=== PATIENT | female | born 1955 | race Caucasian/White ===

== ENCOUNTER 2022-07-03 02:41 | Emergency (ER) | payer OTHER ==
[~2022-07-03] VITALS: Ht 165.1 cm; Wt 113.4 kg
[2022-07-03] MEDS ORDERED: MORPHINE SULFATE INJ 4 MG/ML DISP.SYRIN ONE (02:56)
[2022-07-03] MEDS ORDERED: IV NS 0.9% 1,000 ML BAG IV ONE (03:00)
[2022-07-03] MEDS ORDERED: MORPHINE SULFATE INJ 2 MG/ML DISP.SYRIN IV ONE (03:00)
--- NOTE | 2022-07-03 03:04 | NUR ---
MARIELENARA 841 FROM HOME FOR GAS PIAN AND CONSTIPATION FOR 2 DAYS. PT NOT ABLE TO USE RESTROOM C/O ABD PAIN. PT IS A/O X 4, RR EVEN AND UNLABORED NO SOB NOTED. VSS, NAD. PT IS AFEBRILE.
--- NOTE | 2022-07-03 03:10 | NUR ---
IV FRANCES G20 INSERTED ON RIGHT AC. BLOOD DRAWN AND SENT TO LAB
[2022-07-03 03:38] LABS: BASOPHILS # (AUTO) 0.1 K/uL (0.0-0.2); BASOPHILS % (AUTO) 0.5 % (0.0-2.0); EOSINOPHILS % (AUTO) 0.2 % (0.0-6.0); HEMATOCRIT 41 % (33-45); HEMOGLOBIN 13.2 g/dL (11.5-14.8); LYMPHOCYTES # (AUTO) 3.9 K/uL (0.8-4.8); LYMPHOCYTES % (AUTO) 24.6 % (20.0-44.0); MEAN CORPUSCULAR HGB CONC 32 g/dl (31.0-36.0); MEAN CORPUSCULAR VOLUME 92 fL (82-100); MONOCYTES # (AUTO) 1.2 K/uL (0.1-1.30); MONOCYTES % (AUTO) 7.8 % (2.0-12.0); NEUTROPHILS # (AUTO) 10.7 K/uL (1.8-8.9); NEUTROPHILS % (AUTO) 66.9 % (43.0-81.0); PLATELET COUNT (AUTO) 308 K/uL (150-450)
[2022-07-03 03:56] LABS: CALCIUM, SERUM 10.6 mg/dL (8.5-10.1); CREATININE 1.2 mg/dL (0.6-1.3); POTASSIUM 3.9 mmol/L (3.5-5.1)
[2022-07-03 04:02] LABS: ALBUMIN 4.2 g/dL (3.4-5.0); BILIRUBIN,DIRECT 0.1 mg/dL (0.0-0.2); BILIRUBIN,TOTAL 0.6 mg/dL (0.2-1.0); TOTAL PROTEIN, SERUM 7.8 g/dL (6.4-8.2)
[2022-07-03] MEDS ORDERED: IOHEXOL-300 100 ML VIAL IV ONE (04:11)
[2022-07-03] MEDS ORDERED: IV NS 0.9% 250 ML IV ONE (04:11)
[2022-07-03] MEDS ORDERED: PIPERACILLIN /TAZOBACTAM 3.375 G in IV D5W 50 ML IV ONE (04:30)
[2022-07-03] MEDS ORDERED: PIPERACI/TAZO 3.375GM/D5W 50ML PB IV ONE (05:04)
--- NOTE | 2022-07-03 07:07 | NUR ---
REPORT GIVEN TO BIJAL SWEET FOR ANIL
[2022-07-03] MEDS ORDERED: AMOX-430 PO (07:23)
--- NOTE | 2022-07-03 07:43 | NUR ---
IV removed. Catheter intact and site benign. Pressure and 4x4 applied to site. No bleeding noted.
--- NOTE | 2022-07-03 07:45 | NUR ---
Patient discharged to home in stable condition. Written and verbal after care instructions given. Patient verbalizes understanding of instruction.
[2022-07-03 09:09] VITALS: BP 153/79
== END 2022-07-03 07:45 | disposition home or self-care (01) ==
LOC: ER 02:42
DX: A41.9 Sepsis, unspecified organism (principal); K52.9 Noninfective gastroenteritis and colitis, unspecified; R10.32 Left lower quadrant pain
CPT/HCPCS: 99285; 74177; 96365; 96366; 96361; 96375; 85025; 80048; 87040 ×2; 83605; 83690; 80076; 36415; 85730; J2270; J2543; J7030; J7050; Q9967